=== PATIENT | male | born 1990 | race Caucasian/White ===

== ENCOUNTER 2020-01-27 08:56 | Emergency (ER) | payer MEDICAID, OTHER ==
[2020-01-27] MEDS ORDERED: QUEtiapine 25 MG Tab PO ONE (09:37)
--- NOTE | 2020-01-27 09:44 | EDM.PDOCBH ---
ED HPI GENERAL MEDICAL PROBLEM - General Chief Complaint: Behavioral/Psych Stated Complaint: HALLUCINATIONS Time Seen by Provider: 01/27/20 09:13 Source of Information: Reports: Patient History Limitations: Reports: No Limitations - History of Present Illness INITIAL COMMENTS - FREE TEXT/NARRATIVE: The patient presents with visual and auditory hallucinations. He says this has been going on for a few days. He does have a history of bipolar disorder. He was in [place] for alcohol treatment and he was on latuda and buspirone. He felt fine on them. He has been hearing voices and they tell him to hurt himself. He has more mumbling in the background. He has no fever, chills or cough. He was checked for COVID on the 18th up in [place]. He has no chest pain, shortness of breath, abdominal pain, nausea or vomiting. Onset: Gradual Duration: Day(s): Severity: Moderate Improves with: Reports: None Worsens with: Reports: None Associated Symptoms: Reports: No Other Symptoms - Related Data Allergies Allergy/AdvReac Type Severity Reaction Status Date / Time cefaclor [From Ceclor] Allergy Severe Swelling Verified 01/27/20 09:09 Home Meds: Home Meds QUEtiapine [SEROquel] 25 mg PO BID #60 tab 01/27/20 [Rx] Past Medical History - Past Health History Medical/Surgical History: Denies Medical/Surgical History HEENT History: Reports: None Cardiovascular History: Reports: None Respiratory History: Reports: None Gastrointestinal History: Reports: None Genitourinary History: Reports: None Neurological History: Reports: Brain Injury, Seizure Other Neuro History: hx of GM seizure at 15 yrs Psychiatric History: Reports: Addiction, Bipolar Endocrine/Metabolic History: Reports: None Dermatologic History: Reports: None - Infectious Disease History Infectious Disease History: Reports: None - Past Surgical History Musculoskeletal Surgical History: Reports: Other (See Below) Other Musculoskeletal Surgeries/Procedures:: knee sx Social & Family History - Family History Family Medical History: Noncontributory - Tobacco Use Smoking Status *Q: Current Every Day Smoker Years of Tobacco use: 15 Packs/Tins Daily: 1 - Caffeine Use Caffeine Use: Reports: Coffee, Energy Drinks - Alcohol Use Days Per Week of Alcohol Use: 7 Number of Drinks Per Day: 4 Total Drinks Per Week: 28 Date of Last Drink: 01/26/20 Time of Last Drink: 15:00 - Recreational Drug Use Recreational Drug Use: No ED ROS GENERAL - Review of Systems Review Of Systems: See Below Constitutional: Reports: No Symptoms HEENT: Reports: No Symptoms Respiratory: Reports: No Symptoms Cardiovascular: Reports: No Symptoms Endocrine: Reports: No Symptoms GI/Abdominal: Reports: No Symptoms : Reports: No Symptoms Musculoskeletal: Reports: No Symptoms Skin: Reports: No Symptoms Neurological: Reports: No Symptoms Psychiatric: Reports: Hallucinations ED EXAM, BEHAVIORAL HEALTH - Physical Exam Exam: See Below Exam Limited By: No Limitations General Appearance: Alert, No Apparent Distress Ears: Normal External Exam Nose: Normal Inspection Head: Atraumatic, Normocephalic Neck: Normal Inspection Respiratory/Chest: No Respiratory Distress, Lungs Clear, Normal Breath Sounds Cardiovascular: Regular Rate, Rhythm, No Edema, No Murmur GI/Abdominal: Soft, Non-Tender, No Organomegaly, No Mass Back Exam: Normal Inspection Extremities: Normal Inspection COURSE, BEHAVIORAL HEALTH COMP - Course Vital Signs: Last Vital Signs Temp 97.0 F 01/27/20 09:04 Pulse 113 H 01/27/20 09:04 Resp 16 01/27/20 09:04 BP 128/98 H 01/27/20 09:04 Pulse Ox 96 01/27/20 09:04 Orders, Labs, Meds: Active Orders 24 hr Category Date Time Status QUEtiapine [SEROqueL] Med 01/27/20 09:37 Once 25 mg PO ONETIME ONE Re-Assessment/Re-Exam: I ordered him a dose of seroquel here. I will give him a prescription for more. Departure - Departure Time of Disposition: 09:45 Disposition: Home, Self-Care 01 Condition: Good Clinical Impression: Hallucinations Bipolar disorder Qualifiers: Active/Remission status: remission status unspecified Qualified Code(s): F31.9 - Bipolar disorder, unspecified - Discharge Information *PRESCRIPTION DRUG MONITORING PROGRAM REVIEWED*: Not Applicable *COPY OF PRESCRIPTION DRUG MONITORING REPORT IN PATIENT EARLENE: Not Applicable Prescriptions: QUEtiapine [SEROquel] 25 mg PO BID #60 tab Referrals: Sarthak Dawn MD [Physician] - PCP,None [Primary Care Provider] - 1 Week Additional Instructions: Take the seqoquel 2 times per day. Follow up with your psychiatrist, Dr Dawn of [facility] within a week. Your seroquel will need to be adjusted. [facility] number is . Please return if you are worse. Sepsis Event Note - Evaluation Sepsis Screening Result: No Definite Risk - Focused Exam Vital Signs: Vital Signs Temp Pulse Resp BP Pulse Ox 01/27/20 09:04 97.0 F 113 H 16 128/98 H 96 Date Exam was Performed: 01/27/20 Time Exam was Performed: 09:38 - My Orders Last 24 Hours: My Active Orders 01/27/20 09:37 QUEtiapine [SEROqueL] 25 mg PO ONETIME ONE - Assessment/Plan Last 24 Hours: My Active Orders 01/27/20 09:37 QUEtiapine [SEROqueL] 25 mg PO ONETIME ONE
== END 2020-01-27 10:10 | disposition home or self-care (01) ==
LOC: JD.ED 08:56
DX: F31.9 Bipolar disorder, unspecified (principal); R44.3 Hallucinations, unspecified; F17.210 Nicotine dependence, cigarettes, uncomplicated; Z88.8 Allergy status to other drugs, medicaments and biological substances; Z79.899 Other long term (current) drug therapy
CPT/HCPCS: 99284; A9270; 99283